=== PATIENT | female | born 1990 | race Caucasian/White ===

== ENCOUNTER 2022-02-24 13:51 | Emergency (ER) | payer BC, SELFPAY ==
--- NOTE | ~2022-02-24 | XR_ITS ---
EXAMINATION: XR SHOULDER, LEFT CLINICAL INFORMATION: Pain COMPARISON: None TECHNIQUE: AP external rotation, Grashey, scapular Y, and axillary views of the left shoulder. FINDINGS: No evidence of fracture or dislocation. Glenohumeral and acromioclavicular alignment is anatomic with normal joint space. No abnormal soft tissue calcifications. XR/XR shoulder LT min 2V IMPRESSION: No evidence of acute osseous abnormality.
[2022-02-24 14:12] VITALS: BP 123/82; PULSE 88; RESP 18; TEMP 36.7; O2SAT 97; BMI 34.9
--- NOTE | 2022-02-24 16:24 | ED_ITS ---
HPI - Extremity Problem General Chief complaint: Extremity Problem Stated complaint: shoulder torn Time Seen by Provider: 02/24/22 16:23 History of Present Illness HPI Narrative: Patient complains of left shoulder pain after a fall several days ago, no other injury no numbness weakness or tingling no head injury no neck pain no chest pain or shortness of breath no back pain Related Data Previous Rx's Medication Instructions Recorded ibuprofen 600 mg tablet 600 mg PO Q6H PRN pain #30 tabs 02/24/22 Allergies Allergy/AdvReac Type Severity Reaction Status Date / Time Penicillins Allergy Unknown Verified 02/24/22 16:32 Review of Systems Review of Systems: Positive for left shoulder pain negatives are no headache no loss of consciousness no neck pain no numbness weakness or tingling no chest pain no shortness of breath no other extremity pains Yes all other systems are reviewed and are negative FOR[facility]LY [facility] Past Medical History Source: nursing notes reviewed Social History Social History Advance Directives: No Advance Directives Information Provided: No Physical Exam Vital Signs: Vital Signs: Last Vital Signs Temp 98.1 F 02/24/22 14:12 Pulse 88 02/24/22 14:12 Resp 18 02/24/22 14:12 BP 123/82 02/24/22 14:12 Pulse Ox 97 02/24/22 14:12 O2 Del Method 02/24/22 14:12 BMI result Body Mass Index 34.9 General appearance is no acute distress Head is normocephalic atraumatic Neck is supple nontender The chest is clear to auscultation with symmetric equal breath sounds, no tenderness to chest wall or clavicles The extremities left shoulder has limited range of motion on extension and abduction and external rotation, there is tenderness to anterior lateral and posterior shoulder but skin is normal, the neurovascular distal is intact Other extremities normal Course Course Course Narrative: Left shoulder x-ray is negative, patient will follow with orthopedics as needed and well-appearing patient is discharged Discharge Plan Discharge Clinical Impression: Sprain of left shoulder Patient Disposition: Home, Self-Care Additional Instructions: X-ray was negative Follow with orthopedist for further evaluation Return any time any worse condition or concerns Prescriptions: New ibuprofen 600 mg tablet 600 mg PO Q6H PRN (Reason: pain) Qty: 30 0RF Referrals: Rosalio Hernandez MD [Physician] - (Left shoulder sprain)
== END 2022-02-24 17:38 | disposition home or self-care (01) ==
PROVIDERS: Emergency Provider Emergency Medicine; PCP Family Medicine
DX: S43.402A Unspecified sprain of left shoulder joint, initial encounter (principal); W18.30XA Fall on same level, unspecified, initial encounter; Y93.9 Activity, unspecified; Y92.9 Unspecified place or not applicable; Y99.9 Unspecified external cause status
CPT/HCPCS: 73030; 99281; 99283

== ENCOUNTER 2024-03-28 06:05 | Emergency (ER) | payer BC, SELFPAY ==
--- NOTE | ~2024-03-28 | CT_ITS ---
EXAMINATION: CTA ABDOMEN AND PELVIS WITH AND WITHOUT CONTRAST CLINICAL INFORMATION: Abdominal pain and dark stools COMPARISON: None. TECHNIQUE: Multidetector volumetric CT imaging of the abdomen and pelvis was performed before and after the administration of 100 mL of Omnipaque 300 intravenous contrast without immediate adverse reactions. Axial MIP volume rendering provided. Sagittal and coronal reformatted images were obtained. This CT examination was performed using dose optimization techniques as appropriate, variously including the following: *Automated exposure control *Adjustment of mA and/or kV according to patient size (this includes techniques or standardized protocols for targeted exams where dose is matched to indication/reason for exam; i.e. extremities or head) *Use of iterative reconstruction technique DLP: 2096 mGy-cm. FINDINGS: LOWER LUNGS: No pneumothorax. No large pleural effusion. LIVER, GALLBLADDER, AND BILIARY TREE: Liver is mildly enlarged. No focal hepatic lesion or biliary ductal dilatation is present. The gallbladder is unremarkable with no evidence of radiopaque gallstones, gallbladder wall thickening, or obvious pericholecystic inflammatory changes. PANCREAS: Unremarkable. SPLEEN: Unremarkable. ADRENAL GLANDS: Unremarkable. KIDNEYS AND URETERS: The kidneys are normal in size, shape, and attenuation. No hydronephrosis, hydroureter, or calculi seen. No perinephric stranding. BLADDER: Unremarkable. GASTROINTESTINAL TRACT: The small and large bowel are unremarkable. The appendix is unremarkable. ABDOMINAL WALL: Tiny fat filled umbilical hernia. LYMPH NODES: No enlarged lymph nodes per size criteria. VASCULAR: Aorta is nonaneurysmal. Patency of the celiac artery, superior mesenteric artery, inferior mesenteric artery, and bilateral renal arteries. The bilateral common iliac, external iliac, internal iliac arteries are patent. No evidence of contrast extravasation to suggest hemorrhage. PELVIC VISCERA: Anteverted bicornuate uterus with fluid in the endometrium and fluid in the cul-de-sac, correlation with phase of menstruation. Bilateral adnexal/ovarian hypodense foci the largest measuring up to 2.0 cm. Findings are overwhelmingly likely to represent a normal ovarian follicle. No follow-up imaging recommended. OSSEOUS STRUCTURES: Unremarkable. CT/CT gi bleed abd pel wo/w IVcon IMPRESSION: 1. No acute process of the abdomen or pelvis identified. 2. No evidence of contrast extravasation to suggest hemorrhage.
[2024-03-28 06:06] VITALS: BP 123/75; PULSE 85; RESP 20; TEMP 36.9; O2SAT 96; BMI 38.6
[2024-03-28 06:24] LABS: MANUAL DIFF FLAG NO
[2024-03-28 06:25] LABS: Basophils Percent Auto 0.5 % (0-2); Eosinophils Absolute Auto 0.4 X10*3/uL (0.0-0.4); Eosinophils Percent Auto 4.5 % (0-4); Hematocrit 37.7 % (37.0-47.0); Hemoglobin 13.1 g/dl (12.0-16.0); Imm Gran Abs Auto 0.03 X10*3/uL (0.00-0.03); Imm Gran Pct Auto 0.4 % (0.0-0.4); Lymphocytes Absolute Auto 1.7 X10*3/uL (1.2-4.9); Lymphocytes Percent Auto 20.6 % (20-40); Mean Corpuscular HGB Conc 34.7 g/dl (31.0-35.0); Mean Corpuscular Hemoglobin 29.4 pg (27.0-33.0); Mean Corpuscular Volume 84.7 fL (80.0-98.0); Mean Platelet Volume 9.5 fL (9.4-12.3); Monocytes Absolute Auto 0.6 X10*3/uL (0.1-1.2); Monocytes Percent Auto 6.9 % (2-11); Neutrophils Absolute Auto 5.6 x10*3/uL (2.0-8.3); Neutrophils Percent Auto 67.1 % (45-73); Platelet Count 292 X10*3/uL (160-400); Red Blood Count 4.45 X10*6/uL (4.20-5.50); Red Cell Distribution Width 12.4 % (11.0-16.0); White Blood Count 8.3 X10*3/uL (4.8-10.8)
[2024-03-28 06:46] LABS: Alanine Aminotransferase 11 U/L (0-31); Alkaline Phosphatase 62 U/L (39-117); Anion Gap 13 (12-20); Aspartate Amino Transferase 13 U/L (5-31); Bilirubin Total 0.4 mg/dL (0.0-1.0); Blood Urea Nitrogen 13 mg/dL (9-16); Calcium 9.6 mg/dL (8.4-10.2); Carbon Dioxide 25 mmol/L (22-29); Chloride 106 mmol/L (96-108); Creatinine Clr Calc Pharmacy 119.7; Estimated Glomerular Filt Rate > 60; Glucose Random 96 mg/dL (60-115); Lipase 27 U/L (8-78); Potassium 4.1 mmol/L (3.3-5.1); Sodium 140 mmol/L (135-145); Total Protein 7.2 g/dL (6.5-8.0)
[2024-03-28 06:47] LABS: HCG Quantitative < 2 mIU/mL
--- NOTE | 2024-03-28 06:47 | ED_ITS ---
HPI - General Adult General Chief complaint: Abdominal Pain Stated complaint: stomach pain Time Seen by Provider: 03/28/24 06:41 Source: patient Mode of arrival: ambulatory Limitations: no limitations History of Present Illness ED Provider: Lee Ann Hobbs PA-C HPI narrative: Patient is a 33 year old assigned female at with a history of GERD on pantoprazole and PCOS presenting to the emergency department today with epigastric pain, nausea, vomiting, and blood in her stool. Patient states that over the last 3 days she has been having increased epigastric pain, nausea, vomiting, and blood in her stools. Patient describes the blood as both dark and bright red. Patient denies any dizziness, lightheadedness, fever, chills, blurry vision, double vision, loss of vision, chest pain, difficulty breathing, shortness of breath, back pain, night sweats, pain with urination, increased urinary frequency, increased urinary urgency, blood in her urine, syncope or a near syncopal episode, recent trauma or falls, bowel incontinence, bladder incontinence, or any other complaints at this time. Onset (ago): day(s) (3) Location: abdomen Severity: mild Severity scale (1-10): 4 Quality: burning Pain Consistency: constant Relieving factors: none Exacerbating factors: none Associated symptoms: nausea/vomiting Treatments prior to arrival: none Related Data Previous Rx's ?Medication ?Instructions ?Recorded ibuprofen 600 mg tablet 600 mg PO Q6H PRN pain #30 tabs 02/24/22 Allergies Allergy/AdvReac Type Severity Reaction Status Date / Time Penicillins Allergy Anaphylaxis Verified 03/28/24 06:13 tramadol AdvReac Vomiting Verified 03/28/24 06:13 Review of Systems 2 Constitutional: Constitutional: Reports no additional constitutional complaints, Denies chills, Denies fever(s) and Denies night sweats Eyes: Eyes: Reports no additional eye complaints, Denies blurry vision, Denies change in vision, Denies diplopia, Denies eye discharge, Denies loss of vision and Denies eye pain ENT: Denies dizziness Cardiovascular: Cardiovascular: Reports no additional cardiovascular complaints, Denies chest pain, Denies lightheadedness, Denies Loss of Consciousness and Denies dyspnea Respiratory: Respiratory: Reports no additional respiratory complaints and Denies dyspnea Gastrointestinal: Gastrointestinal: Reports no additional gastrointestinal complaints, Reports abdominal pain, Denies melena, Reports hematochezia, Denies change in bowel habits, Denies change in stool character, Reports nausea and Reports vomiting Genitourinary: Genitourinary: Denies hematuria, Denies urinary frequency, Denies dysuria, Denies urinary incontinence, Denies urinary hesitancy and Denies urinary urgency Musculoskeletal: Musculoskeletal: Reports no additional musculoskeletal complaints, Denies numbness and Denies tingling Neurologic: Denies dizziness, Denies loss of vision, Denies numbness and Denies tingling Psychiatric: Psychiatric: Reports no additional psychiatric complaints Endocrine: Endocrine: Reports no additional endocrine complaints Hematologic/Lymphatic: Hematologic/Lymphatic: Reports no additional hematologic/lymphatic complaints Allergic/Immunologic: Allergic/Immunologic: Reports no additional allergic/immunologic complaints PMFSH Past Medical History Attestation statement: The following information was validated with the patient. Source: old records reviewed and nursing notes reviewed Social History Social History Advance Directives: No Physical Exam ED Vital Signs: Vital Signs - 24 hr 03/28/24 06:06 03/28/24 08:17 Temperature 98.4 F Pulse Rate 85 72 Respiratory Rate 20 18 Blood Pressure 123/75 107/61 Pulse Oximetry 96 96 Oxygen Delivery Method Room Air Room Air BMI result Body Mass Index 38.6 Const General: cooperative, no acute distress, alert and awake Nutritional Appearance: well nourished Orientation/consciousness: patient oriented x3 Limitations: no limitations [facility] Head: Yes normal to inspection and Yes atraumatic Ears: hearing grossly normal bilaterally and external ears normal General nose exam: Normal external nose present, no nasal discharge noted and no epistaxis Face and sinus: Yes normal facial exam, No abrasion and No laceration Mouth: Normal oral and palatal mucosa present, no drooling and no muffled voice Eyes General: appearance normal, both eyes and all related structures Periorbital: periorbital findings normal Eyelids: Yes eyelids normal Conjunctivae: conjunctivae normal Pupils: Equal, round and reactive pupils present EOM: EOMs intact bilaterally Neck Neck: Yes normal visual inspection, Yes full ROM and Yes no lymphadenopathy Chest Chest palpation & inspection: normal inspection of the chest Resp Effort & Inspection: normal respiratory effort and able to speak in complete sentences GI Inspection: Yes normal to inspection Palpation (GI): Soft to palpation, not firm, nontender and no guarding Neuro General: patient oriented x3 and moves all extremities Cranial nerves: Yes Equal, round and reactive pupils present Cognition (Neuro): normal cognition Extrem General: Yes normal to inspection, Yes full ROM and Yes capillary refill normal Psych Appearance: grossly normal Mental Status: mental status grossly normal Affect: normal affect Attitude: cooperative Thought process: Normal thought process present Thought content: Normal thought content present Insight: Good insight present (Psych) Medications Administered Discontinued Medications Generic Name Dose Route Start Last Admin Trade Name Cecelia PRN Reason Stop Dose Admin Iohexol 85 ml 03/28/24 08:09 03/28/24 08:10 Iohexol 350 Mg/Ml 100 Ml Infus..Btl IV 03/28/24 08:10 85 ml ONCE ONE Administration Ondansetron HCl 4 mg 03/28/24 07:19 03/28/24 07:49 Ondansetron Hcl 4 Mg/2 Ml Vial IVPUSH 03/28/24 07:20 4 mg ONCE ONE Administration Pantoprazole Sodium 40 mg 03/28/24 07:19 03/28/24 07:49 Pantoprazole Sodium 40 Mg/10 Ml Vial IVPUSH 03/28/24 07:20 40 mg ONCE ONE Administration Sucralfate 1 gm 03/28/24 07:19 03/28/24 07:49 Sucralfate Oral Suspension 1 Gm/10 Ml Oral.Susp PO 03/28/24 07:20 1 gm ONCE ONE Administration Medical Decision Making Medical Decision Making [facility] Narrative: Patient is a 33 year old assigned female at with a history of GERD and PCOS presenting to the emergency department today with epigastric pain and blood in her stool. Patient's physical exam was unremarkable. Patient's blood work was unremarkable. Patient's urine showed no acute process. Patient's CT abd/pelvis showed no acute process. I explained my physical exam findings as well as all test results to the patient. I answered all questions asked by the patient. I stressed the importance of the patient taking her medication as directed (either prescribed or as the over the counter packaging recommends). I stressed the importance of the patient following up with her primary care provider and her GI provider. I stressed the importance of the patient returning to the emergency department immediately if her symptoms were to worsen or if she were to develop any dizziness, shortness of breath, difficulty breathing, chest pain, blurry vision, loss of vision, nausea, vomiting, abdominal pain, fever, chills, back pain, or any other complaints. Patient verbalized agreement and understanding with this treatment plan and discharge. Differential Diagnosis Differential Diagnoses: The differential diagnosis associated with the presentation includes Gastritis GERD Peptic ulcer Admission/Observation Consideration of admission/observation: Escalation of care including admission/observation considered Patient would have been admitted to the hospital had her work up had any findings where hospital admission was appropriate and her clinical presentation warranted hospital admission. Lab Data [facility] Lab Attestation statement: I reviewed the patient's lab results. My interpretation of these results are in the MDM Rationale portion of this note. 03/28/24 06:20 03/28/24 06:20 Labs: Lab Results 03/28/24 03/28/24 Range/Units 06:20 08:00 WBC 8.3 (4.8-10.8) X10*3/uL RBC 4.45 (4.20-5.50) X10*6/uL Hgb 13.1 (12.0-16.0) g/dl Hct 37.7 (37.0-47.0) % MCV 84.7 (80.0-98.0) fL MCH 29.4 (27.0-33.0) pg MCHC 34.7 (31.0-35.0) g/dl RDW 12.4 (11.0-16.0) % Plt Count 292 (160-400) X10*3/uL MPV 9.5 (9.4-12.3) fL Immature Gran % (Auto) 0.4 (0.0-0.4) % Neut % (Auto) 67.1 (45-73) % Lymph % (Auto) 20.6 (20-40) % Kimball % (Auto) 6.9 (2-11) % Eos % (Auto) 4.5 H (0-4) % Baso % (Auto) 0.5 (0-2) % Lymph # (Auto) 1.7 (1.2-4.9) X10*3/uL Kimball # (Auto) 0.6 (0.1-1.2) X10*3/uL Eos # (Auto) 0.4 (0.0-0.4) X10*3/uL Baso # (Auto) 0.0 (0.0-0.2) X10*3/uL Abs Immat Gran (auto) 0.03 (0.00-0.03) X10*3/uL Absolute Neuts (auto) 5.6 (2.0-8.3) x10*3/uL Absolute Nucleated RBC 0.000 (0.0-0.012) X10*3/uL Nucleated RBC % (auto) 0.0 (0.0-0.2) /100WBC Sodium 140 (135-145) mmol/L Potassium 4.1 (3.3-5.1) mmol/L Chloride 106 (96-108) mmol/L Carbon Dioxide 25 (22-29) mmol/L Anion Gap 13 (12-20) BUN 13 (9-16) mg/dL Creatinine 0.82 (0.5-1.4) mg/dL Estim Creat Clear Calc 119.7 Estimated GFR > 60 Random Glucose 96 (60-115) mg/dL Calcium 9.6 (8.4-10.2) mg/dL Total Bilirubin 0.4 (0.0-1.0) mg/dL AST 13 (5-31) U/L ALT 11 (0-31) U/L Alkaline Phosphatase 62 (39-117) U/L Total Protein 7.2 (6.5-8.0) g/dL Albumin 4.0 (3.5-5.0) g/dL Lipase 27 (8-78) U/L Beta HCG, Quant < 2 mIU/mL Urine Color Yellow Urine Appearance Clear Urine pH 6.5 (5.0-9.0) Ur Specific [place] 1.015 (1.005-1.025) Urine Protein Negative (Neg-Trace) mg/dL Urine Glucose (UA) Negative (Negative) mg/dL Urine Ketones Negative (Negative) mg/dL Urine Blood Negative (Negative) Urine Nitrite Negative (Negative) Ur Leukocyte Esterase Negative (Negative) Independent Interpretation I performed an independent interpretation of an: CT Scan Interpretation: My interpretation is in agreement with the radiologist's impression of this imaging study. - EXAMINATION: CTA ABDOMEN AND PELVIS WITH AND WITHOUT CONTRAST CLINICAL INFORMATION: Abdominal pain and dark stools COMPARISON: None. TECHNIQUE: Multidetector volumetric CT imaging of the abdomen and pelvis was performed before and after the administration of 100 mL of Omnipaque 300 intravenous contrast without immediate adverse reactions. Axial MIP volume rendering provided. Sagittal and coronal reformatted images were obtained. This CT examination was performed using dose optimization techniques as appropriate, variously including the following: *Automated exposure control *Adjustment of mA and/or kV according to patient size (this includes techniques or standardized protocols for targeted exams where dose is matched to indication/reason for exam; i.e. extremities or head) *Use of iterative reconstruction technique DLP: 2096 mGy-cm. FINDINGS: LOWER LUNGS: No pneumothorax. No large pleural effusion. LIVER, GALLBLADDER, AND BILIARY TREE: Liver is mildly enlarged. No focal hepatic lesion or biliary ductal dilatation is present. The gallbladder is unremarkable with no evidence of radiopaque gallstones, gallbladder wall thickening, or obvious pericholecystic inflammatory changes. PANCREAS: Unremarkable. SPLEEN: Unremarkable. ADRENAL GLANDS: Unremarkable. KIDNEYS AND URETERS: The kidneys are normal in size, shape, and attenuation. No hydronephrosis, hydroureter, or calculi seen. No perinephric stranding. BLADDER: Unremarkable. GASTROINTESTINAL TRACT: The small and large bowel are unremarkable. The appendix is unremarkable. ABDOMINAL WALL: Tiny fat filled umbilical hernia. LYMPH NODES: No enlarged lymph nodes per size criteria. VASCULAR: Aorta is nonaneurysmal. Patency of the celiac artery, superior mesenteric artery, inferior mesenteric artery, and bilateral renal arteries. The bilateral common iliac, external iliac, internal iliac arteries are patent. No evidence of contrast extravasation to suggest hemorrhage. PELVIC VISCERA: Anteverted bicornuate uterus with fluid in the endometrium and fluid in the cul-de-sac, correlation with phase of menstruation. Bilateral adnexal/ovarian hypodense foci the largest measuring up to 2.0 cm. Findings are overwhelmingly likely to represent a normal ovarian follicle. No follow-up imaging recommended. OSSEOUS STRUCTURES: Unremarkable. CT/CT gi bleed abd pel wo/w IVcon IMPRESSION: 1. No acute process of the abdomen or pelvis identified. 2. No evidence of contrast extravasation to suggest hemorrhage. Dictated By: Clara Dennis MD Signed By: Electronically signed by Clara Dennis MD 03/28/24 0921 Radiology Impression Discussion of test interpretation with radiology: I have reviewed the radiologist's reading. Discharge Plan Discharge Clinical Impression: Acute epigastric pain Patient Disposition: Home, Self-Care Instructions: Epigastric Pain (ED) Additional Instructions: Continue taking your GERD medication as directed. Follow up with your primary care provider and your GI specialist. Return to the emergency department immediately if your symptoms worsen or if you develop any dizziness, shortness of breath, difficulty breathing, chest pain, blurry vision, loss of vision, nausea, vomiting, abdominal pain, fever, chills, back pain, or any other complaints. Prescriptions: No Action ibuprofen 600 mg tablet 600 mg PO Q6H PRN (Reason: pain) Qty: 30 0RF Referrals: Marty Tucker MD [Primary Care Provider] - Stand Alone Forms: Work/School Release Print Language: Kazakh
[2024-03-28] MEDS: Pantoprazole Sodium 40 MG/10 ML VIAL IVPUSH (07:49)
[2024-03-28] MEDS: Sucralfate Oral Suspension 1 GM/10 ML ORAL.SUSP PO (07:49)
[2024-03-28] MEDS: ondansetron HCL 4 MG/2 ML VIAL IVPUSH (07:49)
[2024-03-28] MEDS: iohexoL 350 MG/ML 100 ML INFUS..BTL 85 ML IV (08:10)
[2024-03-28 08:13] LABS: Appearance Urine Clear; Color Urine Yellow; Glucose Urine UA Negative (Negative); Leukocyte Esterase Urine Negative (Negative); Nitrite Urine Negative (Negative); PH 6.5 (5.0-9.0); Specific Gravity - Urine 1.015 (1.005-1.025); Urine Blood Negative (Negative); Urine Ketones Negative (Negative); Urine Protein Negative (Neg-Trace)
[2024-03-28 08:17] VITALS: BP 107/61; PULSE 72; RESP 18; O2SAT 96
[2024-03-28 10:00] VITALS: BP 107/61; PULSE 72; RESP 18; TEMP 36.6; O2SAT 96
== END 2024-03-28 10:00 | disposition home or self-care (01) ==
PROVIDERS: Emergency Provider Emergency Medicine; PCP Family Medicine
DX: R10.13 Epigastric pain (principal); R11.2 Nausea with vomiting, unspecified
CPT/HCPCS: 36415; 74178; 80053; 81003; 83690; 84702; 85025; 96374; 96375; 99284; J2405; J2470; Q9967